=== PATIENT | male | born 1960 | race Caucasian/White ===

== ENCOUNTER 2017-05-03 23:36 | Emergency (ER) | payer OTHER ==
[~2017-05-03] VITALS: Ht 190.5 cm; Wt 137.0 kg
[2017-05-04] MEDS ORDERED: TDAP DIPH,PERTUSS,TET VAC/PF 0.5 ML DISP.SYRIN IM ONE ×2 (02:30→02:55)
--- NOTE | 2017-05-04 02:44 | NUR ---
MSE COMPLETED. PT HAD ACCU CHECK DONE, DRESSIN TO RT TOE, , THEN D/C'D HOME, ACI/RX X1 GIVEN.
[2017-05-04 02:49] VITALS: BP 159/92
== END 2017-05-04 02:55 | disposition home or self-care (01) ==
LOC: ER 23:42
DX: S91.201A Unspecified open wound of right great toe with damage to nail, initial encounter (principal); J18.9 Pneumonia, unspecified organism; W22.8XXA Striking against or struck by other objects, initial encounter; Y93.89 Activity, other specified; Y92.89 Other specified places as the place of occurrence of the external cause; Y99.8 Other external cause status
CPT/HCPCS: 82962; 90471; 90715; 99283; A4663